=== PATIENT | male | born 1935 | race Caucasian/White ===

== ENCOUNTER 2017-07-16 23:34 | Emergency (ER) | payer OTHER, MEDICARE | END 2017-07-17 02:03 | disposition home or self-care (01) | LOC: JER 23:34 | CPT/HCPCS: 36415; 80053; 81003; 84484; 85025; 93005; 93010; 99282-25 ==

== ENCOUNTER 2017-08-19 18:53 | Emergency (ER) | payer OTHER, MEDICARE ==
[2017-08-19 19:26] VITALS: BMI 29.7
--- NOTE | 2017-08-19 19:55 | PDOC ---
History of Present Illness - General Chief Complaint: Injury Stated Complaint: FALL Time Seen by Provider: 08/19/17 19:05 - History of Present Illness Initial Comments: 08/19/17 19:52 81 yo M with h/o dementia, seizure disorder, recurrent falls, Parkinsons Disease , and A-fib [facility] accompanied by nursing attendant at bedside; with complaint of controlled/assisted fall here for medical evaluation. hospice home health aide reports she was transferring patient from shower to wheelchair and patient slid down her leg onto floor. Denies head/neck/back trauma, convulsions, or LOC. Denies F/C, ROGEL, cough, hemoptysis, orhtopnea, PND, leg swelling/pain, N/V, CP, SOB, abdominal pain, diarrhea, constipation, urinary complaints, weakness, lightheadedness, sensory changes. PMHx: as noted above. Denies anticoagulation. ROS: as noted above SHx: Denies Etoh, tobacco, IVDA Allergies: PCN Past History - Past Medical History Allergies/Adverse Reactions: Allergies Allergy/AdvReac Type Severity Reaction Status Date / Time Penicillins Allergy Verified 07/16/17 23:40 Home Medications: Ambulatory Orders Atorvastatin Ca [Lipitor] 20 mg PO HS 01/25/17 Carbidopa/Levodopa [Carbidopa-Levodopa 25-100 Tab] 2 tab PO BID 01/25/17 Finasteride 5 mg PO DAILY 01/25/17 Melatonin/Pyridoxine HCl (B6) [Melatonin 5 mg Tablet] 1 each PO HS 01/25/17 Metoprolol Succinate [Toprol Xl -] 12.5 mg PO DAILY 01/25/17 Tamsulosin HCl 0.4 mg PO DAILY 01/25/17 Acetaminophen [Tylenol] 325 mg PO QID 07/16/17 Divalproex *ER* [Depakote *ER* -] 500 mg PO BID 07/16/17 Docusate Sodium [Colace] 100 mg PO HS 07/16/17 Mirtazapine [Remeron [DO NOT STOCK]] 22.5 mg PO DAILY 07/16/17 Cardiac Disorders: Yes (AFIB) COPD: No Hypercholesterolemia: Yes Seizures: Yes Other medical history: Parkinsons - Surgical History Orthopedic Surgery: Yes (MULTIPLE ORTHO SX) - Suicide/Smoking/Psychosocial Hx Smoking History: Never smoked Have you smoked in the past 12 months: No Information on smoking cessation initiated: No Hx Alcohol Use: No Drug/Substance Use Hx: No Substance Use Type: None Review of Systems - Review of Systems Comments:: 08/19/17 20:13 GENERAL/CONSTITUTIONAL: No fever or chills. No weakness. HEAD, EYES, EARS, NOSE AND THROAT: No change in vision. No ear pain or discharge. No sore throat. CARDIOVASCULAR: No chest pain or shortness of breath RESPIRATORY: No cough, wheezing, or hemoptysis. GASTROINTESTINAL: No nausea, vomiting, diarrhea or constipation. GENITOURINARY: No dysuria, frequency, or change in urination. MUSCULOSKELETAL: No joint or muscle swelling or pain. No neck or back pain. SKIN: No rash NEUROLOGIC: No headache, vertigo, loss of consciousness, or change in strength/ sensation. ENDOCRINE: No increased thirst. No abnormal weight change HEMATOLOGIC/LYMPHATIC: No anemia, easy bleeding, or history of blood clots. ALLERGIC/IMMUNOLOGIC: No hives or skin allergy. *Physical Exam - Vital Signs Last Vital Signs Temp Pulse Resp BP Pulse Ox 97.8 F 89 20 124/75 97 08/19/17 19:19 08/19/17 19:19 08/19/17 19:19 08/19/17 19:19 08/19/17 19:19 - Physical Exam Comments: 08/19/17 19:54 GENERAL: Awake, alert, oriented to self, and in no acute distress HEAD: No signs of trauma, normocephalic, atraumatic EYES: PERRLA, EOMI, sclera anicteric, conjunctiva clear ENT: Auricles normal inspection, hearing grossly normal, nares patent, oropharynx clear without exudates. Moist mucosa NECK: Normal ROM, supple, no lymphadenopathy, JVD, or masses LUNGS: No distress, speaks full sentences, clear to auscultation bilaterally HEART: Regular rate and rhythm, normal S1 and S2, no murmurs, rubs or gallops, peripheral pulses normal and equal bilaterally. ABDOMEN: Soft, nontender, normoactive bowel sounds. No guarding, no rebound. No masses EXTREMITIES : Normal inspection, Normal range of motion, no edema. No clubbing or cyanosis. NEUROLOGICAL: Cranial nerves II through XII grossly intact. Normal speech, no focal sensorimotor deficits, gait not assessed. SKIN: Warm, Dry, normal turgor, no rashes or lesions noted ED Treatment Course - LABORATORY CBC & Chemistry Diagram: 08/19/17 20:05 08/19/17 20:05 Medical Decision Making - Medical Decision Making 08/19/17 20:15 81 yo M with h/o dementia, seizure disorder, recurrent falls, Parkinsons Disease , and A-fib [facility] accompanied by nursing attendant at bedside; s/p controlled/assisted fall. VSS, AF, GCS 15. Denies head trauma. No evidence of head trauma. Absent C spine ttp. Low suspicion of SAH, hematoma, or acute intracranial pathology. Will assess for electrolyte abnml, toxic or metabolic derangements,acid-base disturbances, or underlying infection. ED Course: CBC, CMP, Cardiac Pr. 08/19/17 20:53 EKG: A-fib with left fascicular anterior block. Similar to interval study (07/16). CBC, CMP: Unremarkable Patient stable for d/c with return precautions. advised to f/u with PMD. *DC/Admit/Observation/Transfer Diagnosis at time of Disposition: Unsteady gait Fall Qualifiers: Encounter type: initial encounter Qualified Code(s): W19.XXXA - Unspecified fall, initial encounter - Discharge Dispostion Condition at time of disposition: Stable Decision to Admit order: No - Referrals - Patient Instructions Printed Discharge Instructions: How to Prevent Falls Additional Instructions: Please return to the emergency department with any new or worsening symptoms or concerns. Please follow up with your primary care physician within 72 hours. - Post Discharge Activity - Attestations Physician Attestion: 08/19/17 20:49 I attest to the information provided in this note.
[2017-08-19 20:14] LABS: BASO % 0.5 % (0-2.0); EOS % 2.1 % (0-4.5); HEMATOCRIT 45.5 % (35.4-49); HEMOGLOBIN 15.1 GM/dL (11.7-16.9); LYMPH % 25.7 % (8-40); MCH 31.5 pg (25.7-33.7); MCHC 33.2 g/dl (32.0-35.9); MEAN CELL VOLUME 95.1 fl (80-96); MEAN PLT VOLUME 9.7 fl (7.5-11.1); MONO % 8.4 % (3.8-10.2); NEUT % 63.3 % (42.8-82.8); PLATELET COUNT 194 K/MM3 (134-434); RBC 4.79 M/mm3 (4.00-5.60); RDW 13.8 % (11.9-15.9); WHITE BLOOD COUNT 7.9 K/mm3 (4.0-10.0)
--- NOTE | 2017-08-19 20:41 | PDOC ---
Attending Attestation - Resident Resident Name: RicciHarshaPaulo - ED Attending Attestation I have performed the following: I have examined & evaluated the patient, The case was reviewed & discussed with the resident, I agree w/resident's findings & plan, Exceptions are as noted - HPI HPI: 08/19/17 21:38 Mr Hastings is an 81 yo M w/ a h/o dementia, seizure disorder, recurrent falls, Parkinsons Disease, HLD and A-fib BIB[facility] from [facility] accompanied by nursing support worker s/p fall. Pt was being transferred from shower to the wheelchair Pt was slid down onto the floor, pt had a controlled descent to the ground No LOC No recent fevers or chills No diarrhea - Physicial Exam PE: 08/19/17 21:44 GENERAL: Awake, alert, oriented to self, and in no acute distress HEAD: No signs of trauma EYES: PERRLA, EOMI, sclera anicteric, conjunctiva clear NECK: Normal ROM, supple LUNGS: No distress, speaks full sentences, clear to auscultation bilaterally HEART: Regular rate and rhythm, normal S1 and S2 ABDOMEN: Soft, nontender, normoactive bowel sounds. No guarding, no rebound. No masses EXTREMITIES : Normal inspection, Normal range of motion, no obvious deformity NEUROLOGICAL: Cranial nerves II through XII grossly intact. Normal speech, no focal sensorimotor deficits, gait not assessed. SKIN: Warm, Dry, normal turgor, no rashes or lesions noted - Medical Decision Making 08/19/17 20:41 Laboratory Tests 08/19/17 20:05 WBC 7.9 Hgb 15.1 Hct 45.5 Plt Count 194 D 08/19/17 21:37 Laboratory Tests 08/19/17 08/19/17 08/19/17 20:05 20:05 20:05 WBC 7.9 Hgb 15.1 Hct 45.5 Plt Count 194 D INR 1.03 BUN 12 Creatinine 0.7 Laboratory Tests 08/19/17 20:05 Creatine Kinase 161 Troponin I < 0.02 Mr Hastings was assisted to the bathroom by aid Pt appears steady Will be discharged back to the halfway I do not believe this patient needs CT scan as he had a controlled descent to the ground with no head trauma 08/19/17 21:47 08/19/17 21:48
[2017-08-19 20:59] LABS: INR 1.03 (0.82-1.09); PROTHROMBIN TIME (PATIENT) 11.6 SEC (9.7-13.0)
[2017-08-19 21:16] LABS: ALBUMIN 3.4 g/dl (3.4-5.0); ANION GAP 8 (8-16); BILIRUBIN,TOTAL 0.8 mg/dL (0.2-1.0); CALCIUM 8.2 mg/dL (8.5-10.1); CHLORIDE 104 mmol/L (98-107); CO2 29 mmol/L (21-32); CREATININE 0.7 mg/dL (0.7-1.3); GLUCOSE,RANDOM 92 mg/dL (74-106); SGOT/AST 13 U/L (15-37); SGPT/ALT 13 U/L (12-78); SODIUM 141 mmol/L (136-145); TOT PROT 6.5 g/dl (6.4-8.2)
[2017-08-19 21:18] LABS: ALK PHOS 51 U/L (45-117); BLOOD UREA NITROGEN 12 mg/dL (7-18)
[2017-08-19 22:12] VITALS: BP 128/72; PULSE 82; TEMP 98.1
--- NOTE | 2017-08-20 22:09 | EKG ---
Test Reason : Blood Pressure : / mmHG Vent. Rate : 078 BPM Atrial Rate : 066 BPM P-R Int : 000 ms QRS Dur : 108 ms QT Int : 384 ms P-R-T Axes : 000 -56 025 degrees QTc Int : 437 ms ATRIAL FIBRILLATION WITH PREMATURE VENTRICULAR OR ABERRANTLY CONDUCTED COMPLEXES LEFT ANTERIOR FASCICULAR BLOCK CANNOT RULE OUT ANTERIOR INFARCT , AGE UNDETERMINED ABNORMAL ECG WHEN COMPARED WITH ECG OF 16-JUL-2017 23:40, MINIMAL CRITERIA FOR ANTERIOR INFARCT ARE NOW PRESENT Confirmed by KONSTANTIN PATE MD ([id number]) on 08/20/2017 10:09:19 PM Referred By: Confirmed By:KONSTANTIN PATE MD
== END 2017-08-19 22:57 ==
LOC: JER 18:53
DX: R26.81 Unsteadiness on feet (principal); W18.39XA Other fall on same level, initial encounter; Y93.89 Activity, other specified; Y92.121 Bathroom in nursing home as the place of occurrence of the external cause; Y99.8 Other external cause status; I48.91 Unspecified atrial fibrillation; G20 Parkinson's disease; F02.80 Dementia in other diseases classified elsewhere, unspecified severity, without behavioral disturbance, psychotic disturbance, mood disturbance, and anxiety; G40.909 Epilepsy, unspecified, not intractable, without status epilepticus; Z91.81 History of falling
CPT/HCPCS: 36415; 80053; 82550; 82553; 84484; 85025; 85610; 93005; 93010; 99282-25

== ENCOUNTER 2017-10-15 14:33 | Emergency (ER) | payer OTHER, MEDICARE ==
[2017-10-15 15:13] VITALS: BMI 26.3
--- NOTE | 2017-10-15 16:00 | PDOC ---
History of Present Illness - General Chief Complaint: Injury Stated Complaint: FALL,HEAD INJURY Time Seen by Provider: 10/15/17 16:00 - History of Present Illness Initial Comments: Clifton Hastings is an 81yo man with a PMH of Parkinsonianism, CBD dementia, seizures , multiple falls, and a-fib (not currently on anticoagulation due to fall risk) who presents to the ED from a SNF today following a witnessed fall. The SNF aid who witnessed the fall is not present in the ED, but Mr Hastings's reports that he has frequent falls due to his unsteadiness combined with his dementia. She states that he forgets he cannot walk well, and often tries to get up on his own. Today, he fell at approximately 6am, apparently while trying to get out of bed. He hit his posterior right head on the sharp corner of the bedside table and then hit the front right head on the floor. His is not certain whether there was any intervention at the SNF, but she noticed around noon today that he seemed a little bit different than his baseline. She is concerned that his eyes seem unfocused, though he is denying any vision changes. Mr Hastigns is unable to give a coherent story about what happened this morning, but he is able to answer yes/no questions and denies any pain. Past History - Past Medical History Allergies/Adverse Reactions: Allergies Allergy/AdvReac Type Severity Reaction Status Date / Time Penicillins AdvReac Severe Verified 10/15/17 15:01 Home Medications: Ambulatory Orders Atorvastatin Ca [Lipitor] 20 mg PO HS 01/25/17 Carbidopa/Levodopa [Carbidopa-Levodopa 25-100 Tab] 2 tab PO BID 01/25/17 Finasteride 5 mg PO DAILY 01/25/17 Melatonin/Pyridoxine HCl (B6) [Melatonin 5 mg Tablet] 1 each PO HS 01/25/17 Metoprolol Succinate [Toprol Xl -] 25 mg PO DAILY 01/25/17 Acetaminophen [Tylenol] 325 mg PO QID 07/16/17 Divalproex *ER* [Depakote *ER* -] 500 mg PO BID 07/16/17 Docusate Sodium [Colace] 100 mg PO HS 07/16/17 Mirtazapine [Remeron [DO NOT STOCK]] 22.5 mg PO DAILY 07/16/17 Tamsulosin HCl 0.4 mg PO DAILY 10/15/17 Cardiac Disorders: Yes (AFIB) COPD: No Dementia: Yes Hypercholesterolemia: Yes Seizures: Yes Other medical history: PARKINSONS - Surgical History Orthopedic Surgery: Yes (MULTIPLE ORTHO SX) - Immunization History Immunization Up to Date: Yes - Suicide/Smoking/Psychosocial Hx Smoking History: Never smoked Have you smoked in the past 12 months: No Hx Alcohol Use: No Drug/Substance Use Hx: No Substance Use Type: None Review of Systems - Review of Systems Comments:: Patient unable to provide ROS *Physical Exam - Vital Signs Last Vital Signs Temp Pulse Resp BP Pulse Ox 97.4 F L 84 22 140/64 99 10/15/17 15:01 10/15/17 15:01 10/15/17 15:01 10/15/17 15:01 10/15/17 15:01 - Physical Exam Comments: General: Comfortable, no acute distress HEENT: PERRL, EOMI, MMM, voice normal, normal neck ROM, no LAD. 5cm contusion with overlying abrasion to lateral right forehead; no underlying edema or hematoma noted. 2cm vertical, superficial laceration/abrasion to right posterior head without underlying edema or hematoma. No active bleeding. Cards: RRR, no murmur appreciated Pulm: Comfortable on room air, clear to auscultation bilaterally Abd: Soft, nontender, nondistended Back: No tenderness, deformity, or step offs along spine Ext: LLE with chronic swelling and skin darkening at anterior mid momin with several ~1cm abrasions overlying. No active bleeding. No pitting. RLE atraumatiic, no edema. ROM intact. Strength 5/5 and equal bilaterally. No bony deformities, BLE nontender to palpation. No sign of injury to BUE. Vasc: Extremities WWP. Palpable radial and pedal pulses bilaterally Neuro: Alert. CN grossly intact. Attends to questions and attempts to answer; answers somewhat nonsensical. Motor/sensory grossly intact and symmetric Psych: Mood appropriate to situation, pleasant and cooperative. Medical Decision Making - Medical Decision Making 10/15/17 17:57 Clifton Hastings is an 81yo man with a PMH of Parkinsonianism, seizures, dementia, a- fib not on anticoagulation, and frequent mechanical falls who presents from his SNF after a witnessed mechanical fall early this morning. He did hit his head both anteriorly and posteriorly with an unknown LOC. Per his , he appears slightly altered from his baseline today. No other obvious injury aside from abrasions to the left momin, likely due to the event today. - Noncontrast CT head and c-spine ordered - Will clean abrasions at bedside; unlikely to need intervention 10/15/17 18:41 - CT head and c-spine completed. No fractures or acute pathology - Abrasions cleaned. Bandage placed on posterior abrasion. No intervention needed - As there is no acute injury, plan to discharge back to his SNF. Discussed with Mrs Hastings, and she agrees to this plan. Discussed with Dr Mercado. *DC/Admit/Observation/Transfer Diagnosis at time of Disposition: Unsteady gait Fall Qualifiers: Encounter type: initial encounter Qualified Code(s): W19.XXXA - Unspecified fall, initial encounter Abrasion head Qualifiers: Encounter type: initial encounter Qualified Code(s): S00.91XA - Abrasion of unspecified part of head, initial encounter - Discharge Dispostion Disposition: [facility] Condition at time of disposition: Good Decision to Admit order: No - Referrals Referrals: Danial Tyson MD [Staff Physician] - - Patient Instructions Printed Discharge Instructions: DI for Contusion, DI for Abrasion Additional Instructions: Discharge Instructions: - You were seen in the ED after a fall. You had two abrasions on your head, but neither needed any sutures or intervention - A CT scan of your head and neck was completed. There was no acute injury found - Please continue strict fall precautions. Do not attempt to get up and walk without assistance - If you have a severe headache, altered mentation, become sleepy and are difficulty to wake, or have any neurological symptoms such as numbness/tingling or weakness in one arm or leg, please return to the ED immediately - You should follow up with your primary physician or in the resident clinic at [facility] within the next 1-2 weeks. - Post Discharge Activity
--- NOTE | 2017-10-15 19:13 | PDOC ---
Attending Attestation - Resident Resident Name: Elida Diaz - ED Attending Attestation I have performed the following: I have examined & evaluated the patient, The case was reviewed & discussed with the resident, I agree w/resident's findings & plan, Exceptions are as noted - HPI HPI: 10/15/17 19:13 Patient is an 81 year old male with a significant past medical history of Parkinsonism, CBD dementia, seizures, multiple falls, and afib (not currently on anticoagulation due to fall risk), who presents to the ED with complaints of head pain, s/p fall that occurred this morning. As per , patient attempted to get out of bed when he fell, hitting the back left side of his head on the nightstand, followed by the front of his head on the floor. No LOC per [facility] staff who witnessed the fall. reports going to see him this afternoon when she noticed the patient acting odd, stating it appeared his eyes were not focusing, prompting her to have him brought to the ED for further evaluation. She reports patient is demented and often forgets that he is non ambulatory. In ED, states he is at his baseline. As per : Denies diarrhea. Denies fever, vomiting. Denies contact with sick individuals, out of state travelling. Denies loss of consciousness. Denies any other symptoms. Allergies: Penicillin. [facility] history: [facility]. No smoking. No alcohol. No illicit drugs. Surgical history: Multiple Orthopedic surgeries. PMD: None - Physicial Exam PE: 10/15/17 19:33 GENERAL: Awake, oriented to name only, in no acute distress HEAD: +superficial abrasion to R scalp, and R forehead EYES: PERRLA, EOMI, sclera anicteric, conjunctiva clear ENT: Nares patent, oropharynx clear without exudates. Moist mucosa LUNGS: Breath sounds equal, clear to auscultation bilaterally. No wheezes, and no crackles HEART: Regular rate and rhythm, normal S1 and S2, no murmurs, rubs or gallops ABDOMEN: Soft, nontender, normoactive bowel sounds. No guarding, no rebound. No masses EXTREMITIES: Normal range of motion, no edema. No clubbing or cyanosis. No cords, erythema, or tenderness NEUROLOGICAL: Answers yes or no, follows commands, cranial nerves intact, moves all 4 extremities - Medical Decision Making 10/15/17 19:14 81yo M with MMP including dementia, parkinsons presents to the ED with mechanical fall after trying to get out of bed unassisted at the [facility]. Pt typically uses walker and needs assistance despite walker to ambulate. Vitals wnl. Exam with superficial abrasions to scalp. Pt at his baseline. CTH, c-spine negative for acute pathology. Pt continues to look well per . Stable for DC home I discussed the physical exam findings, ancillary test results and final diagnoses with the patient/. I answered all of their questions. The patient/ were satisfied with the care received and felt comfortable with the discharge plan and treatment plan. The patient will return to the Emergency Department with any new, persistent or worsening symptoms.
[2017-10-15 19:48] VITALS: BP 126/64; PULSE 81; TEMP 97.7
== END 2017-10-15 20:19 ==
LOC: JER 14:33
DX: S09.8XXA Other specified injuries of head, initial encounter (principal); S00.01XA Abrasion of scalp, initial encounter; S00.81XA Abrasion of other part of head, initial encounter; W06.XXXA Fall from bed, initial encounter; Y93.89 Activity, other specified; Y92.122 Bedroom in nursing home as the place of occurrence of the external cause; Y99.8 Other external cause status; Z91.81 History of falling; G20 Parkinson's disease; F02.80 Dementia in other diseases classified elsewhere, unspecified severity, without behavioral disturbance, psychotic disturbance, mood disturbance, and anxiety; I48.91 Unspecified atrial fibrillation; G40.909 Epilepsy, unspecified, not intractable, without status epilepticus; E78.00 Pure hypercholesterolemia, unspecified; R26.81 Unsteadiness on feet
CPT/HCPCS: 70450-TC; 72125-TC; 99282-25

== ENCOUNTER 2018-03-06 16:28 | Emergency (ER) | payer OTHER, MEDICARE ==
[2018-03-06 16:52] VITALS: TEMP 97.3; BMI 25.7
--- NOTE | 2018-03-06 16:57 | PDOC ---
History of Present Illness - General Chief Complaint: Blood Pressure Problem Stated Complaint: Blood Pressure Problem Time Seen by Provider: 03/06/18 16:51 History Source: Patient, Unavil. due to pt. cond. - History of Present Illness Initial Comments: 03/06/18 16:52 82-year-old male history of Parkinson's A. fib dementia with chronic contractures due to his Parkinson's disease is out of bed to wheelchair but nonverbal due to severe advanced Parkinson's Q today after a fall at [facility]. History is provided by the patient's was at bedside states that they were trying to get the patient out of bed into the wheelchair and his foot got caught subsequently he fell forward sustaining an abrasion over his forehead there is no witnessed LOC no change in behavior since no nausea no vomiting patient has had several CT scans and several falls in the past on [facility] arrival patient was noted to be hypertensive with a blood pressure 150/90 sent to ED for evaluation does not take blood thinners does have a history of A. fib Past History - Past Medical History Allergies/Adverse Reactions: Allergies Allergy/AdvReac Type Severity Reaction Status Date / Time Penicillins AdvReac Severe Verified 12/30/17 17:07 Home Medications: Ambulatory Orders Atorvastatin Ca [Lipitor] 20 mg PO DAILY 01/25/17 Carbidopa/Levodopa [Carbidopa-Levodopa 25-100 Tab] 2 tab PO BID 01/25/17 Finasteride 5 mg PO DAILY 01/25/17 Metoprolol Succinate [Toprol XL -] 12.5 mg PO DAILY 01/25/17 Acetaminophen [Tylenol] 325 mg PO QID 07/16/17 Divalproex *ER* [Depakote *ER* -] 500 mg PO BID 07/16/17 Mirtazapine [Remeron -] 22.5 mg PO BID 07/16/17 Tamsulosin HCl 0.4 mg PO DAILY 10/15/17 Melatonin 5 mg SL HS 12/31/17 levoFLOXacin [Levaquin -] 250 mg PO DAILY #1 tablet 01/05/18 Anemia: No Asthma: No Cancer: Yes (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) Cardiac Disorders: Yes (AFIB) CVA: No COPD: No CHF: No Dementia: Yes Diabetes: No GI Disorders: No Disorders: No HTN: No Hypercholesterolemia: Yes Liver Disease: No Seizures: Yes Thyroid Disease: No - Surgical History Orthopedic Surgery: Yes (MULTIPLE ORTHO SX) - Immunization History Immunization Up to Date: Yes - Suicide/Smoking/Psychosocial Hx Smoking History: Former smoker Have you smoked in the past 12 months: No Cigars Per Day: 0 Information on smoking cessation initiated: No Hx Alcohol Use: No Drug/Substance Use Hx: No Substance Use Type: None Hx Substance Use Treatment: No Review of Systems - Review of Systems Able to Perform ROS?: No Comments:: 03/06/18 16:54 advanced Parkinsons nonverbal *Physical Exam - Vital Signs Last Vital Signs Temp Pulse Resp BP Pulse Ox 97.3 F L 93 H 18 141/74 99 03/06/18 16:38 03/06/18 16:38 03/06/18 16:38 03/06/18 16:38 03/06/18 16:38 - Physical Exam Comments: 03/06/18 16:56 awake alert eyes open. left lateral forehead with superficial abrasion. no palp skull defect. left arm contracted ( baseline) hips nontender. right shoulder with crepitus, chronic arthritis. no deformity. lungs clear bilaterally heart irreg reg. no mrg abd soft nt nd. nuero nonverbal eyes open. left arm contracted. right arm strength 5.5 bilat lower ext 4/5. Moderate Sedation - Procedure Monitoring Vital Signs: Procedure Monitoring Vital Signs Temperature 97.3 F L 03/06/18 16:38 Pulse Rate 93 H 03/06/18 16:38 Respiratory Rate 18 03/06/18 16:38 Blood Pressure 141/74 03/06/18 16:38 O2 Sat by Pulse Oximetry (%) 99 03/06/18 16:38 Medical Decision Making - Medical Decision Making 03/06/18 16:54 82-year-old male history of frequent falls advanced dementia secondary to Parkinson's disease nonverbal baseline status post trip and fall forward which was witnessed no LOC is not on blood thinners is at the bedside states that she would not like the patient to have a CT scan as he has had many CT scans before risk and benefits discussed explained to her the risk of radiation his nail since the patient is 82 she would like the patient to be transferred back to [facility] on repeat examination the blood pressure is improved to 137/91 on exam the patient has 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 tetanus. dc to [facility]. 03/06/18 17:10 dr holland at [facility] informed. *DC/Admit/Observation/Transfer Diagnosis at time of Disposition: Abrasion, Head injury - Discharge Dispostion Disposition: HOME Condition at time of disposition: Improved Decision to Admit order: No - Referrals Referrals: Farhana Holland [Primary Care Provider] - - Patient Instructions Printed Discharge Instructions: DI for Closed Head Injury Additional Instructions: apply bacitracin twice daily . take tylenol 500 mg every 6 hr as needed for pain. return for any problems or concerns. understand you are refusing for head CT , if change in mental status developes, vomiting or any concerns. you should return for ct scan immediately. - Post Discharge Activity
[2018-03-06] MEDS ORDERED: BACITRACIN 0.9 GM PACKET ONE (18:34)
[2018-03-06 18:39] VITALS: BP 140/74; PULSE 92
--- NOTE | 2018-03-07 09:42 | EKG ---
Test Reason : Blood Pressure : / mmHG Vent. Rate : 092 BPM Atrial Rate : 357 BPM P-R Int : 000 ms QRS Dur : 108 ms QT Int : 352 ms P-R-T Axes : 000 -59 053 degrees QTc Int : 435 ms ATRIAL FIBRILLATION WITH PREMATURE VENTRICULAR OR ABERRANTLY CONDUCTED COMPLEXES LEFT ANTERIOR FASCICULAR BLOCK CANNOT RULE OUT INFERIOR INFARCT (MASKED BY FASCICULAR BLOCK?) , AGE UNDETERMINED POSSIBLE ANTERIOR INFARCT (CITED ON OR BEFORE 19-AUG-2017) ABNORMAL ECG WHEN COMPARED WITH ECG OF 30-DEC-2017 21:47, NO SIGNIFICANT CHANGE WAS FOUND Confirmed by CÉSAR SOTELO, BECKY ([id number]) on 03/07/2018 9:41:44 AM Referred By: Confirmed By:BECKY LINDSEY MD
== END 2018-03-06 18:39 | disposition home or self-care (01) ==
LOC: JER 16:28
DX: S00.81XA Abrasion of other part of head, initial encounter (principal); W05.0XXA Fall from non-moving wheelchair, initial encounter; Y93.89 Activity, other specified; Y92.122 Bedroom in nursing home as the place of occurrence of the external cause; Y99.8 Other external cause status; G30.9 Alzheimer's disease, unspecified; F02.80 Dementia in other diseases classified elsewhere, unspecified severity, without behavioral disturbance, psychotic disturbance, mood disturbance, and anxiety; I48.91 Unspecified atrial fibrillation; E78.00 Pure hypercholesterolemia, unspecified; Z86.69 Personal history of other diseases of the nervous system and sense organs; Z85.828 Personal history of other malignant neoplasm of skin
CPT/HCPCS: 93005; 93010; 99282-25